=== PATIENT | female | born 1940 | race Caucasian/White ===

== ENCOUNTER 2023-08-19 22:06 | Emergency (ER) | payer OTHER, SELFPAY ==
[2023-08-19 22:09] VITALS: BP 133/66
== END 2023-08-20 00:56 ==
LOC: EMR 22:06
PROVIDERS: FAMILY PHYSICIAN Internal Medicine
DX: M79.602 Pain in left arm (principal); M25.512 Pain in left shoulder; W19.XXXA Unspecified fall, initial encounter; Z53.21 Procedure and treatment not carried out due to patient leaving prior to being seen by health care provider
CPT/HCPCS: 99281; 73030; 73060

== ENCOUNTER → 2023-08-23 17:35 | Outpatient (REF) | payer OTHER, SELFPAY | LOC: PAVMRI 17:35 | PROVIDERS: ATTENDING PHYSICIAN Orthopaedic Surgery; FAMILY PHYSICIAN Internal Medicine | DX: M25.512 Pain in left shoulder (principal) | CPT/HCPCS: 73221 ==

== ENCOUNTER 2023-09-03 16:59 | Inpatient (IN) | payer OTHER, SELFPAY ==
[2023-09-03 07:56] VITALS: BP 147/76
[2023-09-03 08:20] LABS: % Basophils 0.3 % (0-2); % Eosinophils 0.1 % (0-6); % Immature Granulocytes 0.4 % (0-0.5); % Lymphocytes 13.1 % (20.5-51.1); % Neutrophils 80.1 % (42.2-75.2); Absolute Basophils 0.1 10^3/uL (0-0.2); Absolute Immature Granulocytes 0.1 10^3/uL (0-0.05); Absolute Lymphocytes 2.1 10^3/uL (1.2-3.4); Absolute Monocytes 0.9 10^3/uL (0.1-0.6); Absolute Neutrophils 12.6 10^3/uL (1.4-6.5); Hematocrit 41.3 % (37.0-47.0); Hemoglobin 14.1 g/dL (12.0-16.0); Mean Corp Hgb Conc. 34.1 g/dL (33.0-37.0); Mean Corpuscular Hgb 29.9 pg (27.0-31.0); Mean Corpuscular Volume 87.7 fL (81.0-99.0); Mean Platelet Volume 9.2 fL (7.4-10.4); Nucleated Red Blood Cells % 0 %; Platelet Count 340 10^3/uL (130-400); Red Blood Cell Count 4.71 10^6/uL (4.20-5.40); Red Cell Dist. Width 12.6 % (11.5-14.5); White Blood Cell Count 15.7 10^3/uL (4.8-10.8)
[2023-09-03 08:36] LABS: ALT (SGPT) 15 U/L (0-35); AST (SGOT) 24 U/L (14-36); Albumin 4.4 g/dl (3.5-5.0); Alkaline Phosphatase 125 U/L (38-126); Blood Urea Nitrogen 17 mg/dl (7-17); Carbon Dioxide 29 mmol/L (22-30); Chloride 100 mmol/L (98-107); Glucose 137 mg/dl (70-99); Potassium 4.9 mmol/L (3.5-5.1); Sodium 138 mmol/L (135-145); Total Bilirubin 0.6 mg/dl (0.2-1.3); Total Protein 7.2 g/dl (6.3-8.2); eGFR > 60.00
[2023-09-03 12:48] VITALS: BMI 24.6
--- NOTE | 2023-09-03 13:23 | ED.GENMED ---
History of Present Illness
General
Chief Complaint: Rectal Bleeding
Source: patient
Exam Limitations: none
Time Seen by Provider: 09/03/23 12:45
Nursing documentation reviewed up to this point in time: agreed with
Travel History
Have you had any contact with someone who has COVID-19?: No
Do you have any symptoms of coronavirus? Fever > 100 degrees, chills, cough, shortness of breath, sore throat, loss of taste or smell, muscle aches, or headache?: No
History of Present Illness
History of Present Illness:
82-year-old female who says that she has a history of arthritis but no GI complaints usually presented with nausea vomiting diarrhea that started yesterday afternoon. Patient says she vomited a total of maybe 5 times and has had 5 or 6 episodes of
loose diarrhea with nausea, dry heaving and then this morning she had 2 episodes of bright red blood per rectum in the toilet with minimal stool. Patient says that she has had abdominal pain more left-sided than right but across her lower abdomen.
She has never had diverticulitis before. She has no history of hemorrhoids. She has no rectal pain. There is no fevers or chills but she feels generally fatigued and very dehydrated.
Past History
Past History
ED Past Medical History: HTN and Other (Recent right total knee replacement)
Social History
Tobacco: Non-smoker
Alcohol: None
Personal:
Living: with family
Family History
Family History: CAD
Review of Systems
Review of Systems
Allergies reviewed?: Yes
All Other Systems: Not applicable
Phy Exam
Physical Exam
Physical Exam:
GENERAL: Alert , in no apparent distress
EYE: pupils equal and reactive
NECK: Supple
ENT: o/p clr, very dry mouth
CARDIAC: Regular rate and rhythm .
LUNGS: Clear breath sounds bilaterally, no acute respiratory distress, no wheezes/rales/rhonchi
ABDOMEN: Soft, moderate lower abdominal tenderness no guarding, no r/g, no cvat, normal bowel sounds
NEUROLOGICAL: Alert and oriented, no focal neuro deficits
SKIN: Warm and dry, skin intact.
MUSCULOSKELETAL: No edema, well perfused.
PSYCH: Normal and appropriate interaction.
Course
Orders/Labs/Results
Orders:
Orders
09/03/23 08:01
Norovirus by PCR Urgent
CHARAN Source: Feces/Stool
Specimen Description:
Date Specimen was Collected: 09/03/23
Time Specimen was Collected: 08:01
09/03/23 08:11
CMP [Comprehensive Metabolic Panel] Urgent
Complete Blood Count/With Diff Urgent
09/03/23 13:18
STOOL [C difficile Antigen & Toxins] Urgent
CHARAN Source: Feces/Stool
Specimen Description:
Stool Culture Urgent
CHARAN Source: Feces/Stool
Specimen Description:
0.9% Sodium Chloride 1000 ml [Nss] 1,000 ml IV BOLUS
Ondansetron Injectable [Zofran] 4 mg IV NOW STA
09/03/23 13:19
CT Abd/Pel (IV only)-DH only Urgent
Comment:
Reason For Exam: n/v/d lower abd pain, BRPBR
09/03/23 13:20
Vital Signs- Treatment ONCE
Frequency: Once
09/03/23 13:27
Lactic Acid Urgent
09/03/23 14:45
Acetaminophen 1000MG/100Ml [Ofirmev] 1,000 mg in 100 ml IV ONCE
Acetaminophen IV Indication:: ED Narcotic Naive Pt-ONCE
09/03/23 14:48
Ciprofloxacin 400 mg/[id number] [Cipro 400 mg] 200 ml IV NOW
MetroNIDAZOLE 500 MG/100 ML [Flagyl 500 mg] 100 ml IV NOW
09/03/23 15:47
GASTROINTESTINAL CONSULT Routine
Consulting Provider: Abel Landeros
Was physician already notified: Yes
Reason for consult: acute colitis
09/03/23 15:48
Admit/Transfer Patient As Directed
Co-Sign Provider:
Level of Care: Inpatient admission
Assign to:: Medical/Surgical
Physician / Group: blu cruz
Diagnosis: acute colitis
Reason for Hospitalization: acute colitis
Expected length of stay greater than two midnights?: Yes
ELOS- Estimated Length of Stay in days: 3
I certify the patient meets the requirements for IP care: Yes
09/03/23 15:49
Code Status As Directed
Resuscitation Status: Do not resuscitate
Reached after discussion with pt or family/Healthcare POA: Yes
Based on pt advanced directive or healthcare POA form: Yes
Decision communicated with: per pt
DNR Bracelet Application ONCE
Abnormal Lab Results
09/03/23
08:11
WBC 15.7 H 10^3/uL
(4.8-10.8)
Abs Immat Gran (auto) 0.1 H 10^3/uL
(0-0.05)
Absolute Neuts (auto) 12.6 H 10^3/uL
(1.4-6.5)
Absolute Monos (auto) 0.9 H 10^3/uL
(0.1-0.6)
Neutrophils % 80.1 H %
(42.2-75.2)
Lymphocytes % 13.1 L %
(20.5-51.1)
Creatinine 0.5 L mg/dL
(0.6-1.0)
Glucose 137 H mg/dl
(70-99)
09/03/23 08:11
09/03/23 08:11
Vital Signs
Initial and Last Documented VS:
Initial Vital Signs
Temp Pulse Resp BP Pulse Ox
97.8 F 88 16 147/76 96
09/03/23 07:56 09/03/23 07:56 09/03/23 07:56 09/03/23 07:56 09/03/23 07:56
Last Documented Vital Signs
Temp Pulse Resp BP Pulse Ox
98.1 F 76 16 110/66 95
09/03/23 14:21 09/03/23 14:21 09/03/23 07:56 09/03/23 14:21 09/03/23 14:21
MDM/Problems Addressed
Differential Diagnosis Includes:
ischemic colitis, infectious diarrhea/colitis, hemorrhoids
MDM/Problems Addressed:
82-year-old female with nausea vomiting diarrhea starting yesterday, about 5 or 6 episodes of each which did resolve somewhat overnight and was more with dry heaving and nausea but then this morning had 2 episodes of rectal bleeding. It looked red
without clots. She has never had hemorrhoids or diverticulitis before. On exam the patient looks dehydrated and has mild tenderness to her lower abdomen without guarding or rebound. Her white count is slightly elevated at 15 with a left shift,
she has a slightly elevated BUN. Her hemoglobin is stable. Lactate is normal. CAT scan shows a left-sided moderate to severe colitis. Given her age and risk will admit for IV hydration and IV antibiotics. Patient unable to obtain stool sample
at this time
*Critical Care Note
Total Time (30-74mins, 75-104mins- exclusive of procedures): Not Applicable
ED Attending Note
-
Portions of this chart may have been created with voice recognition software.� Occasional wrong word or��sound alike� substitutions may have occurred due to the inherent limitations of voice recognition software.
Discharge Plan
Departure
Patient Disposition: Admit
Date of Disposition: 09/03/23
Time of Disposition: 14:36
Admit to: Med/Surg
Presentation/result/management discussed w/ accepting MD/DO: Hospitalist
Condition: Fair
Covid-19: Not Applicable
Discharge Problem:
Colitis
Interventions
Interventions:
*Risk Screen - Suicide Last Done: 09/03/23 12:48
*General Assessment Last Done: 09/03/23 12:48
*Neglect/Abuse Screening Last Done: 09/03/23 12:48
ED- Fall Risk Assessment Last Done: 09/03/23 12:48
*ED COVID-19 Vaccine History Last Done: 09/03/23 07:57
IS-Aoqwnw-Ykrimtwlew Assessment Last Done: 09/03/23 12:48
ED- Cardiac Assessment Last Done: 09/03/23 12:48
ED- Pulmonary Assessment Last Done: 09/03/23 12:48
[2023-09-03] MEDS: ZOFRAN 4 MG IV (13:34)
[2023-09-03] MEDS: NSS 1000 IV (13:34)
[2023-09-03 13:57] LABS: Lactic Acid 1.3 mmol/L (0.7-2.0)
[2023-09-03 14:21] VITALS: BP 110/66
[2023-09-03] MEDS: OFIRMEV 100 IV (14:49)
--- NOTE | 2023-09-03 15:18 | HPS.HSE ---
Family Physician
-
Family Physician: Daniel Shoemaker
Chief Complaint
-
Nausea, vomiting, diarrhea bright red in color
History of Present Illness
82-year-old female complaining of sudden onset nausea, vomiting, diarrhea since yesterday. She reports diarrhea with bright red blood today x 3 episodes. She denies any recent antibiotics, travel, raw foods. She does report her nephew who works
for her was sick a few weeks ago with nausea vomiting and diarrhea. She reports she had a colonoscopy approximately 7 years ago with benign polypectomy she also reports she was seen approximately 1 and half weeks ago for a fall and left shoulder
pain along with chronic back pain. I advised her that an L1 compression fracture did show on her CT abdomen pelvis today of unclear age. She states she will follow-up with her pain management doctor Chad who is already aware and wanted her to
have an MRI of her lumbar back for her chronic back pain.
She denies fever, chills, chest pain, palpitations, shortness breath, cough, urinary symptoms.Past medical history chronic neck and back pain, sciatica, DDD, HTN, osteoarthritis.
Medical History
Past Medical History
Past Medical History: Reports Other
Additional Past Medical History:
chronic neck and back pain
sciatica
DDD
HTN
osteoarthritis.
Past Surgical History: Reports Other
Additional Past Surgical History:
Hysterectomy
Appendectomy
Tonsillectomy
Left total knee arthroscopy 2008
Left total knee replacement
Right total knee replacement 2018
Cervical spine procedure 2016
Bilateral cataract extraction
Social History
Tobacco: Non-smoker
Alcohol: None
Drug: None
Personal:
Living: With Family
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
Family History
Family History: Not pertinent
Allergies / Home Medications
Allergies reflects when Allergies were last updated in [employer].
Home Medications with original date entered in [employer]
Allergy/Medication List:
Allergies
Allergy/AdvReac Type Severity Reaction Status Date / Time
celecoxib [From Celebrex] Allergy Unknown Verified 11/27/17 13:48
nabumetone Allergy Anaphylaxis Verified 11/27/17 13:48
NSAIDS (Non-Steroidal Allergy Anaphylaxis Verified 11/27/17 13:48
Anti-Inflamma
prochlorperazine Allergy Rash Verified 11/27/17 13:48
Home Medications
cetirizine 10 mg tablet 10 mg PO DAILY Allergies 05/21/12
cholecalciferol (vitamin D3) 25 mcg (1,000 unit) tablet 1,000 units PO DAILY Supplement 10/23/16
omega 3-tcw-yec-fish oil 300 mg-1,000 mg capsule (Fish Oil) 1 ea PO TID Supplement 10/23/16
calcium carbonate (Antacid (calcium carbonate)) 2 tab PO Q4HPRN PRN INDIGESTION 08/18/17
acetaminophen 500 mg tablet (Tylenol Extra Strength) 1,000 mg PO DAILY Pain 09/03/23
bismuth subsalicylate 262 mg chewable tablet (Pepto-Bismol) 2 tab PO Q1HPRN PRN stomach problems 09/03/23
escitalopram oxalate 10 mg tablet 10 mg PO DAILY Mental Health 09/03/23
ramipril 5 mg capsule 10 mg PO DAILY Blood Pressure 09/03/23
therapeutic multivitamin 1 tab PO DAILY Supplement 09/03/23
vitamins A,C,S-dbtd-dvbtcf 2,148 mcg-113 mg-45 mg-17.4 mg tablet (PreserVision AREDS) 1 tab PO BID Supplement 09/03/23
zinc sulfate 50 mg zinc (220 mg) capsule 50 mg PO DAILY Supplement 09/03/23
Review of Systems
-
History Source: Patient
A 12 point ROS was completed and negative except as noted: Yes
Constitutional: Denies Fever or Chills
EENT: Denies Sore Throat or Runny Nose
Respiratory: Denies Cough, Hemoptysis or Trouble Breathing
Cardiac: Denies Chest Pain, Diaphoresis or Palpitations
Abdomen/GI: Reports Abdominal Pain, Nausea, Vomiting, Diarrhea (Bright red) and Bloody Stools; Denies Constipated
: Denies Dysuria, Frequency, Flank Pain, Incontinence or Difficulty Voiding
Musculoskeletal: Denies Joint Pain or Edema
Skin: Denies Itching or Rash
Neurological: Denies Dizzy, Headache or Weakness
Endocrine: Reports No Symptoms
Hematologic/Lymphatic: Reports No Symptoms
Psych: Reports Calm
Physical Exam
Vital Signs
Vital Signs
Temp Pulse Resp BP Pulse Ox
98.1 F 76 16 110/66 95
09/03/23 14:21 09/03/23 14:21 09/03/23 07:56 09/03/23 14:21 09/03/23 14:21
Physical Exam
General: Comfortable and Conversant; No Fever or Chills
HEENT: NormoCephalic, Anicteric, Moist mucous membranes, PERRLA, Rawson Conjunctivae and No Ptosis
Respiratory: Clear; No Wheezes, Rales or Rhonchi
Cardiac: S1/S2 and Regular Rhythm; No Murmur, Rub, Gallop or Peripheral Edema
GI: Soft, Non Distended, Normal Bowel Sounds, Tender (Generalized) and No Hepatosplenomegaly
Genito-urinary: Deferred by me
Musculoskeletal: No Clubbing, No Cyanosis and No Edema
Skin: Warm and Dry; No Rash or Jaundice
Neuro: AO x 3, No Motor Deficits, Nonfocal/grossly intact, Cranial Nerves Intact and No Sensory Deficits; No Slurred Speech, Facial Droop or Tremors
Psych: Calm
Laboratory Results
-
09/03/23 08:11
09/03/23 08:11
Laboratory Results
Lactic Acid 1.3 mmol/L (0.7-2.0) 09/03/23 13:27
Total Bilirubin 0.6 mg/dl (0.2-1.3) 09/03/23 08:11
AST 24 U/L (14-36) 09/03/23 08:11
ALT 15 U/L (0-35) 09/03/23 08:11
Alkaline Phosphatase 125 U/L (38-126) 09/03/23 08:11
Data Reviewed
-
CT Scan: Report Reviewed by me
Lab Data: Labs Reviewed by me
Impression/Plan
-
Impression/plan:
Admit to MedSurg
#Bright red blood per rectum likely secondary to Acute colitis concern for viral versus infectious
WBC 15.7 with left shift, 98.1, HR 76, 110/66
-Consult GI
-Clears
-Pain control
-IV Cipro, IV Flagyl
-Stool cultures, C. difficile, norovirus
CT abdomen pelvis IV contrast:
1. Moderate to severe acute colitis extending from the distal transverse colon to the proximal sigmoid colon
2 bilateral renal cyst including several parapelvic cyst no hydro
3. Age-indeterminate superior endplate compression fracture of the L1 vertebral body new from CT 2016
Colonoscopy approximately 7 years ago with benign polypectomy per patient
#HTN-benign
BP 110/66
-Continue ramipril 10 mg daily
#Age-indeterminate superior endplate compression fracture of the L1 vertebral body per CT new from 2017
#Chronic neck and back pain
#Sciatica hx
#DDD hx
-Continue Tylenol 1000 mg daily
#Osteoarthritis
-Continue vitamin D3, calcium carbonate
#Seasonal allergies
Continue sertraline daily
DVT prophylaxis
Scd's
DNR
[2023-09-03] MEDS: FLAGYL 500 MG 100 IV ×2 (15:22→23:53)
[2023-09-03] MEDS: CIPRO 400 MG 200 IV (15:46)
--- NOTE | 2023-09-03 15:55 | W.PN.UPDATE ---
Addendum entered and electronically signed by Levi Crawford MD 09/03/23 19:48:
Correction-->This an Addendum to H&P by Yolanda Palacios
Original Note:
Update Note
Progress Note Update
Discharge is an appointment to H&P dictated by Yolanda Palacios on 09/03/2023.
I saw and examined the patient.
The ELECTRICAL PROSPECTING OBSERVER or PA's note was reviewed and I agree with the note.
Comment:
Patient 82 years old female Hx HTN, chronic back pain, came into the hospital with diarrhea nausea and vomiting since yesterday. Patient was at work and developed this diarrhea watery stools associated with cramps, nausea, and vomiting. Patient
had 3 episodes of bright blood per rectum at home. No travel history. No recent antibiotics. Patient had a colonoscopy about 7 years ago. She denies any NSAIDs or anticoagulants. She denies any fevers or chills. Denies any chest pain or
shortness of breath. She does have some chronic back pain and she follows up with pain services as outpatient. In the ER, hemoglobin noted to be 14 and WBC noted to be 15.7. CT scan of the abdomen and pelvis shows evidence of moderate to severe
acute colitis from the distal transverse colon through proximal sigmoid colon. She was referred to hospital service for further evaluation.
Physical exam:
General: Acutely ill
HEENT: Normocephalic, Atraumatic and Moist Mucous Membranes
Respiratory: Clear to Auscultation; Negative Wheezes, Rales or Rhonchi
Cardiac: Regular Rhythm and S1/S2
GI: Soft, Nontender and Nondistended
Musculoskeletal: No Clubbing, No Cyanosis and No Edema
Neuro: Awake, Alert and Oriented
Psych: Calm
A/P:
Acute colitis likely infectious but other etiologies in the look out--> continue antibiotics, IVF, stool cultures, monitor hemoglobin and trend WBC. GI consult. Will give further recommendations based on her clinical course.
--- NOTE | 2023-09-03 16:15 | CON.GI ---
Addendum entered and electronically signed by Abel Landeros MD 09/04/23 09:40:
I saw and examined the patient.
The TEST DESK OPERATOR or PA's note was reviewed and I agree with the note.
Comment:
Pt seen by me on 09/04/23 at 9am
Pt with a hx of a fall with abdominal pain/diarrhea/N/V. did have a sick contact, no previous antibiotics. No chronic symptoms. Then had rectal bleeding which stopped, no just bloated. CT with colitis from transverse to sigmoid colon.
abd: soft, nontender
impresson
likely gastroenteritis +/- hemorrhoids vs ischemic colitis
Plan:
can advance diet to full liquids and if tolerates to lactose free
stool studies
antibiotics
follow hgb, wbc
Original Note:
Consultation
-
Date/Time Consultation Requested: 09/03/23 1550
Date/Time Consultation Performed: 09/03/23 1600
Requesting Provider: MARCIAL Mahan
Performing Provider: Dr. Landeros/MARCIAL Bradley
Reason for Consultation: N/V/D, BRB per rectum
Medical History
Chief Complaint / HPI
Chief Complaint: N/V/D, rectal bleeding
History of Present Illness:
82-year-old female with past medical history of osteoarthritis, hypertension and depression presents to the emergency room with acute onset of nausea, vomiting and diarrhea followed by bright red blood per rectum, asked to evaluate for the same.
The patient states that approximately 2 weeks ago she had contact with person with similar symptoms although they did not have bloody diarrhea. She states that yesterday around 1 PM she had acute onset of nausea and vomiting that at first was food
followed by bilious fluid then dry heaves. Acute onset of bowel movements followed by diarrhea. She had multiple episodes throughout the day associated with abdominal pain and cramping. She then had cessation of symptoms was able to go to sleep
and then woke up at 4 AM this morning with the feeling of urge to have a bowel movement however went to the bathroom and had bright red blood per rectum x 3 times. At which point she came to the emergency room. She denies any fevers, chills,
melena, dysphagia or dyne aphasia. She denies any early satiety or unintentional weight loss. She does not take any NSAIDs as she has anaphylaxis from these. She has had no recent changes in medication, no recent travel, no spoiled food that she
is aware of. CT of the abdomen and pelvis with IV contrast only shows moderate to severe acute colitis extending from the distal transverse colon through the proximal sigmoid colon. She has no bowel movements or signs of bleeding since arrival to
the emergency room. She does have a leukocytosis with left shift. She has been started on antibiotics in the ER. The patient has never had any issues with diarrhea in the past. She has no family history of colon cancer or inflammatory bowel
disease.
Past Medical History
Past Medical History: HTN and Other (Osteoarthritis, sciatica, DDD,L1 compression fracture)
Past Surgical History: Appendectomy, Cholecystectomy, Gynecological (Hysterectomy,), Orthopedic (Left total knee replacement, left total knee arthroscopy, right total knee replacement, cervical spine procedure), Tonsilectomy and Other (Bilateral
cataracts)
Social History
Tobacco: Non-Smoker
Alcohol: None
Drug: None
Personal:
Living: With Family
Employment: Employed
Family History
Family History: Other
Allergies / Home Medications
Allergy/AdvReac Type Severity Reaction Status Date / Time
celecoxib [From Celebrex] Allergy Unknown Verified 11/27/17 13:48
nabumetone Allergy Anaphylaxis Verified 11/27/17 13:48
NSAIDS (Non-Steroidal Allergy Anaphylaxis Verified 11/27/17 13:48
Anti-Inflamma
prochlorperazine Allergy Rash Verified 11/27/17 13:48
�Medication �Instructions �Recorded
cetirizine 10 mg tablet 10 mg PO DAILY Allergies 05/21/12
cholecalciferol (vitamin D3) 25 1,000 units PO DAILY Supplement 10/23/16
mcg (1,000 unit) tablet
omega 5-qxo-nmn-fish oil 300 1 ea PO TID Supplement 10/23/16
mg-1,000 mg capsule (Fish Oil)
calcium carbonate (Antacid 2 tab PO Q4HPRN PRN INDIGESTION 08/18/17
(calcium carbonate))
acetaminophen 500 mg tablet 1,000 mg PO DAILY Pain 09/03/23
(Tylenol Extra Strength)
bismuth subsalicylate 262 mg 2 tab PO Q1HPRN PRN stomach 09/03/23
chewable tablet (Pepto-Bismol) problems
escitalopram oxalate 10 mg tablet 10 mg PO DAILY Mental Health 09/03/23
ramipril 5 mg capsule 10 mg PO DAILY Blood Pressure 09/03/23
therapeutic multivitamin 1 tab PO DAILY Supplement 09/03/23
vitamins A,C,N-fder-xhyanp 2,148 1 tab PO BID Supplement 09/03/23
mcg-113 mg-45 mg-17.4 mg tablet
(PreserVision AREDS)
zinc sulfate 50 mg zinc (220 mg) 50 mg PO DAILY Supplement 09/03/23
capsule
Review of Systems
-
All other systems: A 12 pt ROS was Negative except as stated above in HPI
Vital Signs
Temp Pulse Resp BP Pulse Ox
98.1 F 76 16 110/66 95
09/03/23 14:21 09/03/23 14:21 09/03/23 07:56 09/03/23 14:21 09/03/23 14:21
Physical Exam
Exam
General: Well Developed and No Apparent Distress
HEENT: Normocephalic and Anicteric
Respiratory: Clear
Cardiac: Regular Rhythm
GI: Soft, Non Distended, Normal Bowel Sounds and Tender (Mild tenderness left lower quadrant)
Musculoskeletal: No Edema
Skin: Warm and Dry
Neuro: AO x 3
Psych: Calm
Results
WBC 15.7 10^3/uL (4.8-10.8) H 09/03/23 08:11
Hgb 14.1 g/dL (12.0-16.0) 09/03/23 08:11
Hct 41.3 % (37.0-47.0) 09/03/23 08:11
MCV 87.7 fL (81.0-99.0) 09/03/23 08:11
Plt Count 340 10^3/uL (130-400) 09/03/23 08:11
Absolute Neuts (auto) 12.6 10^3/uL (1.4-6.5) H 09/03/23 08:11
Sodium 138 mmol/L (135-145) 09/03/23 08:11
Potassium 4.9 mmol/L (3.5-5.1) 09/03/23 08:11
Chloride 100 mmol/L (98-107) 09/03/23 08:11
Carbon Dioxide 29 mmol/L (22-30) 09/03/23 08:11
BUN 17 mg/dl (7-17) 09/03/23 08:11
Creatinine 0.5 mg/dL (0.6-1.0) L 09/03/23 08:11
Calcium 10.0 mg/dl (8.4-10.2) 09/03/23 08:11
Total Bilirubin 0.6 mg/dl (0.2-1.3) 09/03/23 08:11
AST 24 U/L (14-36) 09/03/23 08:11
ALT 15 U/L (0-35) 09/03/23 08:11
Alkaline Phosphatase 125 U/L (38-126) 09/03/23 08:11
Diagnostic Image Results:
CT Abd/Pelvis with IV contrast:
IMPRESSION:
1. Moderate to severe acute colitis extending from the distal transverse colon through the proximal sigmoid colon.
2. Bilateral renal cysts, including several parapelvic cysts. No hydronephrosis.
3. Age-indeterminate superior endplate compression deformity of L1 vertebral body, new compared to the prior CT from 717.
4. Additional findings above.
Prior GI Procedures:
EGD: never
Colonoscopy: 07/20/2012 ([facility]) One 5 mm polyp in the rectum. Tissue was removed. This
was biopsied. (hyperplastic)
- Mild diverticulosis in the sigmoid colon and in the
descending colon.
- The examined portion of the ileum was normal.
Assessment / Plan
-
82-year-old female with past medical history of osteoarthritis, hypertension and depression presents to the emergency room with acute onset of nausea, vomiting and diarrhea followed by bright red blood per rectum, asked to evaluate for the same.
Patient with acute onset of symptoms for started with nausea vomiting then followed by diarrhea. Multiple episodes then with 3 episodes of bright red blood per rectum. Without any fevers or chills. She does have a leukocytosis. She did have a
sick contact approximately 2 weeks ago with similar symptoms however did not have any bright red blood. No episodes of hypotension that we could identify. She has had no further episodes of nausea, vomiting, bowel movements or bright red blood per
rectum. CT with out IV contrast showing inflammation from transverse to sigmoid colon. She has been started on Cipro and Flagyl. No stool studies have been obtained as patient has not had any. Norovirus has been ordered. Patient states that she
had some GERD sx as well since vomiting.
Impression:
N/V/D
Rectal bleeding-> colitis on CT
--> Appearance all suggestive of infectious enteritis
GERD
Plan:
-Obtain stool studies if able (Ecoli, salmonella, shigella, norovirus)
-Clear liquid diet as tolerated, no red
-CBC, BMP in am
-Can add Pepcid 20 mg BID for GERD sx for now.
Data Reviewed
-
CT Scan: Report Reviewed by me
Old Records: Reviewed
-
-
Thank you for consultation and allowing me to participate in the patient's care. Please call the senior web applications developer GI physician during the after hours with any questions or concerns.
[2023-09-03 20:05] VITALS: BP 140/64; BMI 24.9
--- NOTE | 2023-09-03 20:27 | PTCARENOTE ---
Patient admitted from ED. Patient AAO x3, on RA, in no acute distress. Patient oriented to room and call marley within reach.
[2023-09-03] MEDS: OCUVITE SOFTGEL 1 CAP PO (20:51)
[2023-09-03] MEDS: TYLENOL 650 MG PO (20:51)
[2023-09-03 23:19] VITALS: BP 116/52
[2023-09-04] MEDS: CIPRO 400 MG 200 IV ×2 (03:33→16:50)
[2023-09-04 07:30] VITALS: BP 135/77
[2023-09-04] MEDS: FLAGYL 500 MG 100 IV ×2 (07:36→15:52)
[2023-09-04] MEDS: VITAMIN D3 (cholecalciferol) 25 MCG PO (07:36)
[2023-09-04] MEDS: ZYRTEC 10 MG PO (07:36)
[2023-09-04] MEDS: ZINC SULFATE 220 MG PO (07:37)
[2023-09-04] MEDS: OCUVITE SOFTGEL 1 CAP PO ×2 (07:37→20:35)
[2023-09-04] MEDS: ALTACE 10 MG PO (07:37)
[2023-09-04] MEDS: LEXAPRO PO ×2 (07:37→07:38)
[2023-09-04] MEDS: THERAGRAN 1 TABLET PO (07:37)
[2023-09-04 08:08] LABS: % Basophils 0.4 % (0-2); % Eosinophils 0.7 % (0-6); % Immature Granulocytes 0.4 % (0-0.5); % Lymphocytes 20.5 % (20.5-51.1); % Monocytes 5.7 % (1.7-9.3); % Neutrophils 72.3 % (42.2-75.2); Absolute Basophils 0.1 10^3/uL (0-0.2); Absolute Eosinophils 0.1 10^3/uL (0-0.7); Absolute Immature Granulocytes 0.1 10^3/uL (0-0.05); Absolute Lymphocytes 2.6 10^3/uL (1.2-3.4); Absolute Monocytes 0.7 10^3/uL (0.1-0.6); Absolute Neutrophils 9.2 10^3/uL (1.4-6.5); Hematocrit 36.4 % (37.0-47.0); Hemoglobin 12.2 g/dL (12.0-16.0); Mean Corp Hgb Conc. 33.5 g/dL (33.0-37.0); Mean Corpuscular Volume 89.4 fL (81.0-99.0); Mean Platelet Volume 9.8 fL (7.4-10.4); Nucleated Red Blood Cells % 0 %; Platelet Count 268 10^3/uL (130-400); Red Blood Cell Count 4.07 10^6/uL (4.20-5.40); Red Cell Dist. Width 12.8 % (11.5-14.5); White Blood Cell Count 12.8 10^3/uL (4.8-10.8)
--- NOTE | 2023-09-04 08:16 | W.PN.HOSP.TC ---
Today's Communication/Plan
-
IV fluids. IV antibiotics. Advance diet
Assessment / Plan
Assessment / Plan
Physical exam:
General: Acutely ill
HEENT: Normocephalic, Atraumatic and Moist Mucous Membranes
Respiratory: Clear to Auscultation; Negative Wheezes, Rales or Rhonchi
Cardiac: Regular Rhythm and S1/S2
GI: Soft, Mild diffusse tender and Nondistended
Musculoskeletal: No Clubbing, No Cyanosis and No Edema
Neuro: Awake, Alert and Oriented
Psych: Calm
A/P:
#Bright red blood per rectum likely secondary to Acute colitis concern for viral versus infectious
WBC 15.7 with left shift, 98.1, HR 76, 110/66
-Consult GI--> appreciated input
-Clears--> advance as tolerated
-Pain control
-IV Cipro, IV Flagyl
-Stool cultures, C. difficile, norovirus
CT abdomen pelvis IV contrast:
1. Moderate to severe acute colitis extending from the distal transverse colon to the proximal sigmoid colon
2 bilateral renal cyst including several parapelvic cyst no hydro
3. Age-indeterminate superior endplate compression fracture of the L1 vertebral body new from CT 2016
Colonoscopy approximately 7 years ago with benign polypectomy per patient
#HTN-benign
BP stable
-Continue ramipril 10 mg daily
#Age-indeterminate superior endplate compression fracture of the L1 vertebral body per CT new from 2017
#Chronic neck and back pain
#Sciatica hx
#DDD hx
-Continue Tylenol 1000 mg daily
#Osteoarthritis
-Continue vitamin D3, calcium carbonate
#Seasonal allergies
Continue sertraline daily
DVT prophylaxis
Scd's
DNR
Anticipated Discharge: 24 - 48 hours
Subjective/Interval History
-
Date of Service: September 04, 2023
Patient feels better overall, still having abdominal discomfort. Less diarrhea. No nausea vomit
Objective Data
-
Labs:
Laboratory Results
09/04/23
06:57
WBC Pending
Hgb Pending
Hct Pending
Plt Count Pending
Sodium Pending
Potassium Pending
Chloride Pending
Carbon Dioxide Pending
BUN Pending
Creatinine Pending
Glucose Pending
Calcium Pending
Vital Signs:
Vital Signs
Temp Pulse Resp BP Pulse Ox
98.0 F 87 18 135/77 98
09/04/23 07:30 09/04/23 07:30 09/04/23 07:30 09/04/23 07:30 09/04/23 07:30
I&O
09/03/23 09/04/23 09/05/23
06:59 06:59 06:59
Intake Total 320 / 320
Balance 320 / 320
[2023-09-04 08:32] LABS: Blood Urea Nitrogen 12 mg/dl (7-17); Carbon Dioxide 26 mmol/L (22-30); Chloride 103 mmol/L (98-107); Estimated Creatinine Clearance 64 ml/min; Glucose 87 mg/dl (70-99); Sodium 133 mmol/L (135-145); eGFR > 60.00
[2023-09-04] MEDS: NSS 1000 IV (10:42)
--- NOTE | 2023-09-04 11:11 | CM ---
Patient seen bedside.
IA completed.
Patient lives with spouse in a 2 story home with 2 steps to enter.
Bed and bath second floor with powder room on the 1st.
patient has a cane which she keeps in the car for high curbs.
Patient independent prior to admission.
patient had VN in the remote past.
PCP: Dr Shoemaker
Pharmacy: [facility]
Plan: home no needs
[2023-09-04] MEDS: TYLENOL 650 MG PO ×2 (14:20→20:41)
[2023-09-04 15:05] VITALS: BP 133/61
[2023-09-04 23:09] VITALS: BP 128/55
[2023-09-05] MEDS: FLAGYL 500 MG 100 IV (00:02)
[2023-09-05] MEDS: NSS 1000 IV (03:49)
[2023-09-05] MEDS: CIPRO 400 MG 200 IV (03:51)
[2023-09-05 07:05] LABS: % Basophils 0.4 % (0-2); % Eosinophils 1.9 % (0-6); % Immature Granulocytes 0.3 % (0-0.5); % Lymphocytes 22.5 % (20.5-51.1); % Monocytes 6.5 % (1.7-9.3); % Neutrophils 68.4 % (42.2-75.2); Absolute Eosinophils 0.2 10^3/uL (0-0.7); Absolute Lymphocytes 2.3 10^3/uL (1.2-3.4); Absolute Monocytes 0.7 10^3/uL (0.1-0.6); Hematocrit 35.7 % (37.0-47.0); Hemoglobin 11.8 g/dL (12.0-16.0); Mean Corp Hgb Conc. 33.1 g/dL (33.0-37.0); Mean Corpuscular Hgb 29.6 pg (27.0-31.0); Mean Corpuscular Volume 89.7 fL (81.0-99.0); Mean Platelet Volume 9.6 fL (7.4-10.4); Nucleated Red Blood Cells % 0 %; Platelet Count 276 10^3/uL (130-400); Red Blood Cell Count 3.98 10^6/uL (4.20-5.40); Red Cell Dist. Width 12.6 % (11.5-14.5); White Blood Cell Count 10.3 10^3/uL (4.8-10.8)
[2023-09-05 07:19] LABS: Blood Urea Nitrogen 7 mg/dl (7-17); Calcium 8.8 mg/dl (8.4-10.2); Carbon Dioxide 28 mmol/L (22-30); Chloride 104 mmol/L (98-107); Estimated Creatinine Clearance 64 ml/min; Glucose 88 mg/dl (70-99); Potassium 4.1 mmol/L (3.5-5.1); Sodium 138 mmol/L (135-145); eGFR > 60.00
[2023-09-05 07:40] VITALS: BP 137/70
--- NOTE | 2023-09-05 08:58 | W.PN.HOSP.TC ---
Today's Communication/Plan
-
Continue current management.
Assessment / Plan
Assessment / Plan
Physical exam:
General: Acutely ill
HEENT: Normocephalic, Atraumatic and Moist Mucous Membranes
Respiratory: Clear to Auscultation; Negative Wheezes, Rales or Rhonchi
Cardiac: Regular Rhythm and S1/S2
GI: Soft, Mild diffusse tender and Nondistended
Musculoskeletal: No Clubbing, No Cyanosis and No Edema
Neuro: Awake, Alert and Oriented
Psych: Calm
A/P:
Infectious versus ischemic colitis:
WBC 15.7--> 10.3
Hemoglobin 11.8
Diet as tolerated
C. difficile negative and rest of stool cultures pending
Appreciated GI consult
Change Cipro and Flagyl to oral
Observe overnight to make sure he feels better hopefully over the next 24 hours
Check orthostatics signs
PT OT
Patient does not feel ready for discharge today.
#Hyponatremia
Improved with IV fluid--> 138 today
#HTN-benign
BP stable will check orthostatics
-Continue ramipril 10 mg daily
#Age-indeterminate superior endplate compression fracture of the L1 vertebral body per CT new from 2016
Follow-up with pain services as outpatient
#Chronic neck and back pain
#Sciatica hx
#DDD hx
-Continue Tylenol 1000 mg daily
-Follow-up with pain services as outpatient
-PT eval
#Osteoarthritis
-Continue vitamin D3, calcium carbonate
#Seasonal allergies
Continue sertraline daily
DVT prophylaxis
Scd's
DNR
Anticipated Discharge: 24 - 48 hours
Subjective/Interval History
-
Date of Service: September 05, 2023
Patient not feeling well today. She felt she was going to pass out. She also feels her GI symptoms not up to par. Afebrile
Objective Data
-
Labs:
Laboratory Results
09/05/23
06:35
WBC 10.3
Hgb 11.8 L
Hct 35.7 L
Plt Count 276
Sodium 138
Potassium 4.1
Chloride 104
Carbon Dioxide 28
BUN 7
Creatinine 0.4 L
Glucose 88
Calcium 8.8
Vital Signs:
Vital Signs
Temp Pulse Resp BP Pulse Ox
97.7 F 74 18 137/70 97
09/05/23 07:40 09/05/23 07:40 09/05/23 07:40 09/05/23 07:40 09/05/23 07:40
I&O
09/04/23 09/05/23 09/06/23
06:59 06:59 06:59
Intake Total 320 / 320 600 / 600
Balance 320 / 320 600 / 600
[2023-09-05] MEDS: ZINC SULFATE 220 MG PO (09:44)
[2023-09-05] MEDS: ALTACE 10 MG PO (09:44)
[2023-09-05] MEDS: VITAMIN D3 (cholecalciferol) 25 MCG PO (09:45)
[2023-09-05] MEDS: THERAGRAN 1 TABLET PO (09:45)
[2023-09-05] MEDS: OCUVITE SOFTGEL 1 CAP PO ×2 (09:45→22:05)
[2023-09-05] MEDS: ZYRTEC 10 MG PO (09:45)
[2023-09-05] MEDS: LEXAPRO 10 MG PO (09:45)
[2023-09-05] MEDS: CIPRO 500 MG PO ×2 (09:47→22:05)
[2023-09-05] MEDS: FLAGYL 500 MG PO ×3 (09:47→23:56)
[2023-09-05] MEDS: FLAGYL 500 MG IV (11:09)
[2023-09-05 13:30] VITALS: BP 120/51; BP 126/54; BP 129/49; PULSE 67; PULSE 73; PULSE 79
[2023-09-05 14:54] VITALS: BP 100/44
--- NOTE | 2023-09-05 15:00 | CM ---
patient seen bedside.
Patient with incr abdominal discomfort from yesterday, loose stools.
Patient with left shoulder and back discomfort s/p fall at home.
Recent outpatient therapy for right sciatic pain.
patient denies need for home care.
IMM completed.
Plan: home no needs, spouse will transport.
--- NOTE | 2023-09-05 16:15 | W.PN.GI.CBS2 ---
Today's Communication / Plan
-
continue diet
Assessment / Plan
-
82-year-old female with past medical history of osteoarthritis, hypertension and depression presents to the emergency room with acute onset of nausea, vomiting and diarrhea followed by bright red blood per rectum, asked to evaluate for the same.
Patient with acute onset of symptoms for started with nausea vomiting then followed by diarrhea. Multiple episodes then with 3 episodes of bright red blood per rectum. Without any fevers or chills. She does have a leukocytosis. She did have a
sick contact approximately 2 weeks ago with similar symptoms however did not have any bright red blood. No episodes of hypotension that we could identify. She has had no further episodes of nausea, vomiting, bowel movements or bright red blood per
rectum. CT with out IV contrast showing inflammation from transverse to sigmoid colon. She has been started on Cipro and Flagyl. No stool studies have been obtained as patient has not had any. Norovirus has been ordered. Patient states that she
had some GERD sx as well since vomiting.
Impression:
N/V/D
Rectal bleeding-> colitis on CT
--> Appearance all suggestive of infectious enteritis
GERD
Plan:
-lactose free diet
- wbc improving
- await full studies those back are neg thusfar
Subjective
Subjective
Date of Service: September 05, 2023
Pt still with bloating, some loose stool, eating regular diet w/o lactose but not back to baseline
Objective
Data Reviewed
Laboratory Data:
Laboratory Results
09/05/23 06:35
09/05/23 06:35
Laboratory Results
Total Bilirubin 0.6 mg/dl (0.2-1.3) 09/03/23 08:11
AST 24 U/L (14-36) 09/03/23 08:11
ALT 15 U/L (0-35) 09/03/23 08:11
Alkaline Phosphatase 125 U/L (38-126) 09/03/23 08:11
Vital Signs and I&O:
Vital Signs
Temp Pulse Resp BP Pulse Ox
98.1 F 75 16 100/44 96
09/05/23 14:54 09/05/23 14:54 09/05/23 14:54 09/05/23 14:54 09/05/23 14:54
I&O
09/04/23 09/05/23 09/06/23
06:59 06:59 06:59
Intake Total 320 / 320 600 / 600
Balance 320 / 320 600 / 600
Physical Exam
Physical Exam
GI: Soft, Non Distended (mildly distended) and Non Tender
Neuro: Non Focal
[2023-09-05 23:15] VITALS: BP 115/58; BP 115/60; BP 116/50; PULSE 65; PULSE 80; PULSE 90
[2023-09-06 07:00] VITALS: BP 140/70; BP 142/73; BP 150/71; PULSE 68; PULSE 82; PULSE 85
[2023-09-06 08:28] LABS: % Basophils 0.4 % (0-2); % Eosinophils 3.1 % (0-6); % Immature Granulocytes 0.4 % (0-0.5); % Lymphocytes 28.4 % (20.5-51.1); % Monocytes 7.4 % (1.7-9.3); % Neutrophils 60.3 % (42.2-75.2); Absolute Eosinophils 0.2 10^3/uL (0-0.7); Absolute Lymphocytes 2.1 10^3/uL (1.2-3.4); Absolute Monocytes 0.5 10^3/uL (0.1-0.6); Absolute Neutrophils 4.4 10^3/uL (1.4-6.5); Hematocrit 34.9 % (37.0-47.0); Mean Corp Hgb Conc. 34.4 g/dL (33.0-37.0); Mean Corpuscular Volume 87.3 fL (81.0-99.0); Mean Platelet Volume 9.7 fL (7.4-10.4); Nucleated Red Blood Cells % 0 %; Platelet Count 277 10^3/uL (130-400); Red Cell Dist. Width 12.6 % (11.5-14.5); White Blood Cell Count 7.3 10^3/uL (4.8-10.8)
--- NOTE | 2023-09-06 08:35 | W.PN.HOSP.TC ---
Today's Communication/Plan
-
Antibiotics. Discharge planning in progress
Assessment / Plan
Assessment / Plan
Physical exam:
General: Acutely ill
HEENT: Normocephalic, Atraumatic and Moist Mucous Membranes
Respiratory: Clear to Auscultation; Negative Wheezes, Rales or Rhonchi
Cardiac: Regular Rhythm and S1/S2
GI: Soft, Mild diffusse tender and Nondistended
Musculoskeletal: No Clubbing, No Cyanosis and No Edema
Neuro: Awake, Alert and Oriented
Psych: Calm
A/P:
Infectious versus ischemic colitis:
WBC 15.7--> 10.3
Hemoglobin 11.8
Diet as tolerated
C. difficile negative and rest of stool cultures pending
Appreciated GI consult
Change Cipro and Flagyl to oral
Observe overnight to make sure he feels better hopefully over the next 24 hours
Check orthostatics signs
PT OT
Patient does not feel ready for discharge today.
#Hyponatremia
Improved with IV fluid--> 135 today
#HTN-benign
BP stable will check orthostatics
-Continue ramipril 10 mg daily
#Age-indeterminate superior endplate compression fracture of the L1 vertebral body per CT new from 2016
Follow-up with pain services as outpatient
#Chronic neck and back pain
#Sciatica hx
#DDD hx
-Continue Tylenol 1000 mg daily
-Follow-up with pain services as outpatient
-PT eval
#Osteoarthritis
-Continue vitamin D3, calcium carbonate
#Seasonal allergies
Continue sertraline daily
DVT prophylaxis
Scd's
DNR
Anticipated Discharge: 24 - 48 hours
Subjective/Interval History
-
Date of Service: September 06, 2023
Patient feels better overall today. Patient still has abdominal bloating and less diarrhea. No bright blood per rectum but dark stools. No nausea or vomiting. Afebrile
Objective Data
-
Labs:
Laboratory Results
09/06/23
07:20
WBC Pending
Hgb Pending
Hct Pending
Plt Count Pending
Sodium Pending
Potassium Pending
Chloride Pending
Carbon Dioxide Pending
BUN Pending
Creatinine Pending
Glucose Pending
Calcium Pending
Vital Signs:
Vital Signs
Temp Pulse Resp BP Pulse Ox
97.7 F 65 18 116/50 91
09/05/23 23:15 09/05/23 23:15 09/05/23 23:15 09/05/23 23:15 09/05/23 23:15
I&O
09/05/23 09/06/23 09/07/23
06:59 06:59 06:59
Intake Total 600 / 600 440 / 440
Balance 600 / 600 440 / 440
[2023-09-06 09:19] VITALS: BP 133/65; PULSE 82
[2023-09-06 09:29] LABS: Blood Urea Nitrogen 6 mg/dl (7-17); Calcium 9.1 mg/dl (8.4-10.2); Carbon Dioxide 25 mmol/L (22-30); Chloride 105 mmol/L (98-107); Estimated Creatinine Clearance 64 ml/min; Glucose 94 mg/dl (70-99); Potassium 3.8 mmol/L (3.5-5.1); Sodium 135 mmol/L (135-145); eGFR > 60.00
[2023-09-06] MEDS: ALTACE 10 MG PO (09:39)
[2023-09-06] MEDS: ZINC SULFATE 220 MG PO (09:39)
[2023-09-06] MEDS: CIPRO 500 MG PO ×2 (09:39→19:47)
[2023-09-06] MEDS: LEXAPRO 10 MG PO (09:39)
[2023-09-06] MEDS: VITAMIN D3 (cholecalciferol) 25 MCG PO (09:39)
[2023-09-06] MEDS: OCUVITE SOFTGEL 1 CAP PO ×2 (09:39→19:47)
[2023-09-06] MEDS: FLAGYL 500 MG PO ×3 (09:40→23:13)
[2023-09-06] MEDS: THERAGRAN 1 TABLET PO (09:40)
[2023-09-06] MEDS: TYLENOL 650 MG PO ×2 (09:40→23:13)
[2023-09-06] MEDS: ZYRTEC 10 MG PO (09:40)
[2023-09-06 11:28] VITALS: BP 134/81
[2023-09-06 15:00] VITALS: BP 149/78
[2023-09-06] MEDS: TUMS 2 TABLET PO ×2 (15:20→19:54)
--- NOTE | 2023-09-06 18:23 | W.PN.GI.CBS2 ---
Today's Communication / Plan
-
Plan:
Bloody diarrhea with colitis on CT scan, likely infectious, stool studies negative
Tolerating low lactose diet diarrhea is much improved without any bleeding
Finish course of antibiotic
Low residue low lactose diet and once diarrhea is better, can go on regular diet.
She takes daily probiotics, okay to continue as outpatient.
Will see her in the office in follow-up in 2 months.
Will sign off, please call back if needed.
Assessment / Plan
-
82-year-old female with past medical history of osteoarthritis, hypertension and depression presents to the emergency room with acute onset of nausea, vomiting and diarrhea followed by bright red blood per rectum, asked to evaluate for the same.
Patient with acute onset of symptoms for started with nausea vomiting then followed by diarrhea. Multiple episodes then with 3 episodes of bright red blood per rectum. Without any fevers or chills. She does have a leukocytosis. She did have a
sick contact approximately 2 weeks ago with similar symptoms however did not have any bright red blood. No episodes of hypotension that we could identify. She has had no further episodes of nausea, vomiting, bowel movements or bright red blood per
rectum. CT with out IV contrast showing inflammation from transverse to sigmoid colon. She has been started on Cipro and Flagyl. No stool studies have been obtained as patient has not had any. Norovirus has been ordered. Patient states that she
had some GERD sx as well since vomiting.
Impression:
N/V/D
Rectal bleeding-> colitis on CT
--> Appearance all suggestive of infectious enteritis
GERD
Plan:
Bloody diarrhea with colitis on CT scan, likely infectious, stool studies negative
Tolerating low lactose diet diarrhea is much improved without any bleeding
Finish course of antibiotic
Low residue low lactose diet and once diarrhea is better, can go on regular diet.
She takes daily probiotics, okay to continue as outpatient.
Will see her in the office in follow-up in 2 months.
Will sign off, please call back if needed.
Subjective
Subjective
Date of Service: September 06, 2023
Denies any abdominal pain, small liquid brown stool, no further bloody diarrhea. Tolerating low lactose diet
Objective
Data Reviewed
Laboratory Data:
Laboratory Results
09/06/23 07:20
09/06/23 07:20
Laboratory Results
Total Bilirubin 0.6 mg/dl (0.2-1.3) 09/03/23 08:11
AST 24 U/L (14-36) 09/03/23 08:11
ALT 15 U/L (0-35) 09/03/23 08:11
Alkaline Phosphatase 125 U/L (38-126) 09/03/23 08:11
Vital Signs and I&O:
Vital Signs
Temp Pulse Resp BP Pulse Ox
97.9 F 65 18 149/78 95
09/06/23 15:00 09/06/23 15:00 09/06/23 15:00 09/06/23 15:00 09/06/23 15:00
I&O
09/05/23 09/06/23 09/07/23
06:59 06:59 06:59
Intake Total 600 / 600 440 / 440
Balance 600 / 600 440 / 440
Physical Exam
Physical Exam
GI: Soft, Non Distended and Non Tender
[2023-09-06 23:13] VITALS: BP 129/59; BP 133/74; BP 136/69; PULSE 70; PULSE 75; PULSE 84
[2023-09-06 23:14] VITALS: BP 133/74
[2023-09-07 07:30] VITALS: BP 149/86
--- NOTE | 2023-09-07 07:30 | W.PN.HOSP.TC ---
Addendum entered and electronically signed by Levi Crawford MD 09/07/23 17:11:
RN reach out to me. Patient feeling better and now she feels that she can go home. Will work on her discharge today.
Original Note:
Today's Communication/Plan
-
Supportive care. Discharge planning in progress
Assessment / Plan
Assessment / Plan
Physical exam:
General: Acutely ill
HEENT: Normocephalic, Atraumatic and Moist Mucous Membranes
Respiratory: Clear to Auscultation; Negative Wheezes, Rales or Rhonchi
Cardiac: Regular Rhythm and S1/S2
GI: Soft, Mild diffusse tender and Nondistended
Musculoskeletal: No Clubbing, No Cyanosis and No Edema
Neuro: Awake, Alert and Oriented
Psych: Calm
A/P:
Infectious versus ischemic colitis:
WBC 15.7--> 10.3
Hemoglobin 11.8
Diet as tolerated
C. difficile negative and rest of stool cultures pending
Appreciated GI consult
Change Cipro and Flagyl to oral
Observe overnight to make sure he feels better hopefully over the next 24 hours
Check orthostatics signs
PT OT
Patient does not feel ready for discharge today. She was discussed with GI more in details.
#Hyponatremia
Improved with IV fluid--> 135 today
#HTN-benign
BP stable will check orthostatics
-Continue ramipril 10 mg daily
#Age-indeterminate superior endplate compression fracture of the L1 vertebral body per CT new from 2017
Follow-up with pain services as outpatient
#Chronic neck and back pain
#Sciatica hx
#DDD hx
-Continue Tylenol 1000 mg daily
-Follow-up with pain services as outpatient
-PT eval
#Osteoarthritis
-Continue vitamin D3, calcium carbonate
#Seasonal allergies
Continue sertraline daily
DVT prophylaxis
Scd's
DNR
Anticipated Discharge: 24 - 48 hours
Subjective/Interval History
-
Date of Service: September 07, 2023
She feels abdominal bloating and does not feel back to her normal. I explained to her this will take time but she wants to discuss with GI. No nausea or vomiting
Objective Data
-
Vital Signs:
Vital Signs
Temp Pulse Resp BP Pulse Ox
97.8 F 70 18 133/74 94
09/06/23 23:14 09/06/23 23:14 09/06/23 23:14 09/06/23 23:14 09/06/23 23:14
I&O
09/06/23 09/07/23 09/08/23
06:59 06:59 06:59
Intake Total 440 / 440 2220 / 2220
Balance 440 / 440 2220 / 2220
[2023-09-07] MEDS: ALTACE 10 MG PO (08:54)
[2023-09-07] MEDS: CIPRO 500 MG PO ×2 (08:55→18:10)
[2023-09-07] MEDS: LEXAPRO 10 MG PO (08:55)
[2023-09-07] MEDS: ZYRTEC 10 MG PO (08:55)
[2023-09-07] MEDS: VITAMIN D3 (cholecalciferol) 25 MCG PO (08:55)
[2023-09-07] MEDS: ZINC SULFATE 220 MG PO (08:55)
[2023-09-07] MEDS: THERAGRAN 1 TABLET PO (08:55)
[2023-09-07] MEDS: OCUVITE SOFTGEL 1 CAP PO (08:55)
[2023-09-07] MEDS: FLAGYL 500 MG PO ×2 (08:55→16:09)
[2023-09-07 15:20] VITALS: BP 140/64
--- NOTE | 2023-09-07 15:57 | CM ---
Patient seen bedside.
Patient anticipates d/c today.
IMM completed.
Plan: home with no needs.
--- NOTE | 2023-09-07 16:36 | W.DCSUMMARY ---
Discharge Summary
Discharge Data
Date of Admission: 09/03/23
Date of Discharge: 09/07/23
-
Pending Results: No
Hospital Course
Patient 82 years old female history of hypertension depression chronic back pain came to the hospital with nausea vomiting diarrhea and bright blood per rectum. GI consulted. Patient had a elevated white count and she was started on IV antibiotics
subsequently switched to oral. Her elevated WBC went back to normal. She has remained afebrile. Stools were negative for C. difficile and stool cultures negative. GI thinks she has an infectious colitis. Although she has not improved back to
her normal, she has had significant improvement overall and she has been able to tolerate low residue lactose-free diet. 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
outpatient. I offered some pain medications for her back but she wants to follow-up outpatient. She will follow-up with her pain specialist about her chronic pain issues. Otherwise, patient hemodynamically stable and she is agreeable for discharge
today. She will be discharged in stable condition today.
Discharge duration: 34 minutes
Discharge Plan
-
Patient Disposition: Home (Routine Discharge)
Discharge Diagnosis/Procedures: Acute diarrhea. Probable infectious colitis. Hyponatremia. Chronic back pain. L1 compression fracture.
Diet: Low Residue and Other diet
Additional Diets: Lactose free.
Activity: As tolerated
Driving Restrictions: As prior to admission
Blood Work: Please PCP to order CBC, BMP within 1 week
Instructions: Colitis, Low Fiber Diet, Lactose-Controlled Diet
Referrals:
Daniel Shoemaker MD [Family Provider] - in less than 1 week
Dasha Gibbs MD [Active] - in one to two weeks
Prescriptions:
New
metronidazole 500 mg Tablet
500 mg PO Q8 2 Days Qty: 6 0RF
ciprofloxacin HCl 500 mg Tablet
500 mg PO BID 2 Days Qty: 4 0RF
Continued
cetirizine 10 MG tablet
10 mg PO DAILY
cholecalciferol (vitamin D3) 1,000 UNITS tablet
1,000 units PO DAILY
omega 5-skp-nis-fish oil [Fish Oil] 1 EACH capsule
1 ea PO TID
calcium carbonate [Antacid (calcium carbonate)] 1 TABLET tablet,chewable
2 tab PO Q4HPRN PRN (Reason: INDIGESTION) 0RF
therapeutic multivitamin Tablet
1 tab PO DAILY
bismuth subsalicylate [Pepto-Bismol] 262 mg Tablet,Chewable
2 tab PO Q1HPRN PRN (Reason: stomach problems)
ramipril 5 mg Capsule
10 mg PO DAILY
escitalopram oxalate 10 mg Tablet
10 mg PO DAILY
zinc sulfate 50 mg zinc (220 mg) Capsule
50 mg PO DAILY
PreserVision AREDS 2,148 mcg-113 mg-45 mg-17.4mg Tablet
1 tab PO BID
acetaminophen [Tylenol Extra Strength] 500 MG tablet
1,000 mg PO DAILY
Discharge Orders:
Discharge Patient (As Directed); Ordered 09/07/23
Ordered By: Levi Crawford
Discharge Date and Time
Discharge Date/Time: 09/07/23 18:34
Print Language: FAROESE
== END 2023-09-07 18:34 | disposition home or self-care (01) | DRG 392 ==
LOC: 4 WEST ACU 16:59
PROVIDERS: Clinical Nurse Specialist Family Health; Emergency Medicine; Physician Assistant; ADMITTING PHYSICIAN Hospitalist; CONSULT PHYSICIAN Internal Medicine; EMERGENCY PHYSICIAN Emergency Medicine; FAMILY PHYSICIAN Internal Medicine
DX: A09 Infectious gastroenteritis and colitis, unspecified (principal); K62.5 Hemorrhage of anus and rectum; E87.1 Hypo-osmolality and hyponatremia; M48.56XA Collapsed vertebra, not elsewhere classified, lumbar region, initial encounter for fracture; I10 Essential (primary) hypertension; F32.A Depression, unspecified; Z66 Do not resuscitate; E86.0 Dehydration; G89.29 Other chronic pain; K21.9 Gastro-esophageal reflux disease without esophagitis; K57.30 Diverticulosis of large intestine without perforation or abscess without bleeding; K58.9 Irritable bowel syndrome, unspecified; M19.90 Unspecified osteoarthritis, unspecified site; M54.2 Cervicalgia; N28.1 Cyst of kidney, acquired; Z91.81 History of falling; Z79.899 Other long term (current) drug therapy; Z86.010 Personal history of colon polyps; Z88.8 Allergy status to other drugs, medicaments and biological substances; Z88.6 Allergy status to analgesic agent; Z90.710 Acquired absence of both cervix and uterus; Z96.653 Presence of artificial knee joint, bilateral
CPT/HCPCS: 74177; 80048; 80053; 83605; 85025; 87045; 87046; 87324; 87427; 87449; 87798; 96361; 96374; 96375; 97116; 97162; 97166; 97530; 99285; Q9967